=== PATIENT | female | born 1945 | race Caucasian/White ===

== ENCOUNTER 2021-01-25 19:27 | Emergency (ER) | payer MEDICARE, OTHER ==
[2021-01-25 22:35] LABS: BILIRUBIN NEGATIVE (NEGATIVE); BLOOD 3+ Ery/uL (NEGATIVE); CLARITY CLOUDY (CLEAR); COLOR YELLOW (YELLOW); GLUCOSE (U) TRACE mg/dL (NORMAL); LEUKOCYTES 1+ Leu/uL (NEGATIVE); NITRITE NEGATIVE (NEGATIVE); PROTEIN 2+ mg/dL (NEGATIVE); pH 5.5 (5.0-9.0)
[2021-01-25 22:35] LABS: BASOPHIL 0.5 % (0-2); EOSINOPHIL 0.4 % (0-7); HCT 38.7 % (37.0-47.0); HGB 13.3 g/dl (12.5-16.0); LYMPHOCYTE 5.9 % (15-48); MCH 29.5 pg (25.0-31.0); MCHC 34.4 g/dL (32.0-36.0); MCV 85.8 fL (78.0-100.0); MONOCYTE 8.2 % (0-12); MPV 9.1 fL (6.0-9.5); NEUTROPHIL 84.6 % (41-80); NRBC 0; PLT 333 K/uL (150-400); RBC 4.51 M/uL (4.20-5.40); RDW 12.4 % (11.5-14.0); WBC 9.7 K/uL (4.0-10.5)
[2021-01-25 22:45] LABS: BACTERIA TRACE; SQUAMOUS EPITHELIAL CELLS RARE; URIC ACID CRYSTALS LARGE
[2021-01-25 22:59] LABS: ALBUMIN 2.9 g/dL (3.4-5.0); BILIRUBIN - TOTAL 1.7 mg/dL (0.2-1.0); BUN/CREAT RATIO (CALC) 15.7 RATIO; C-REACTIVE PROTEIN 6.9 mg/dL (<=0.90); CREATININE 1.08 mg/dL (0.51-0.95); GLOBULIN (CALCULATION) 4.4 g/dL; LACTIC ACID 1.1 mmol/L (0.4-1.9); TOTAL PROTEIN 7.3 g/dL (6.4-8.2)
[2021-01-26] MEDS ORDERED: CLEOCIN300 MG PO (01:32)
[2021-01-26] MEDS ORDERED: LISINOPRIL5 MG PO (01:34)
== END 2021-01-26 02:40 | disposition home or self-care (01) ==
LOC: FER 19:27
PROVIDERS: Nurse Practitioner Family
DX: L03.113 Cellulitis of right upper limb (principal); I10 Essential (primary) hypertension; E11.9 Type 2 diabetes mellitus without complications
CPT/HCPCS: 36415; 73130; 80053; 81001; 83605; 85025; 86140; J0696; J1885